=== PATIENT | male | born 1980 | race Caucasian/White ===

== ENCOUNTER 2023-01-18 11:28 | Emergency (ER) | payer OTHER ==
[~2023-01-18] VITALS: Ht 170.2 cm; Wt 85.7 kg
[2023-01-18 11:46] VITALS: BP 144/95
[2023-01-18] MEDS ORDERED: LEVO750 PO (13:16)
== END 2023-01-18 13:30 | disposition home or self-care (01) ==
LOC: ER 11:28
DX: J32.9 Chronic sinusitis, unspecified (principal); B96.89 Other specified bacterial agents as the cause of diseases classified elsewhere; F17.210 Nicotine dependence, cigarettes, uncomplicated; Z88.0 Allergy status to penicillin
CPT/HCPCS: 99283

== ENCOUNTER 2024-03-03 17:59 | Emergency (ER) | payer OTHER ==
[~2024-03-03] VITALS: Ht 170.2 cm; Wt 72.6 kg
[~2024-03-03 17:59] MED LIST: LEVO750 PO
[2024-03-03 18:06] VITALS: BP 118/64
== END 2024-03-03 20:12 | disposition home or self-care (01) ==
LOC: ER 17:59
DX: K40.90 Unilateral inguinal hernia, without obstruction or gangrene, not specified as recurrent (principal); F17.210 Nicotine dependence, cigarettes, uncomplicated; Z88.0 Allergy status to penicillin; Z79.899 Other long term (current) drug therapy
CPT/HCPCS: 99283